=== PATIENT | male | born 1985 ===

== ENCOUNTER 2017-07-11 10:05 | Emergency (ER) | payer SELFPAY ==
[~2017-07-11] VITALS: Wt 118.2 kg
[2017-07-11] MEDS ORDERED: FLUORESCEIN STRIP RIGHT EYE ONE (11:00)
[2017-07-11] MEDS ORDERED: OPHTHALMIC IRRIG SOLUTION 120 ML RIGHT EYE ONE (11:00)
[2017-07-11] MEDS ORDERED: TETRACAINE 0.5% 4 ML OPH BOTH EYES ONE (11:00)
[2017-07-11] MEDS ORDERED: POLY10DR19 RIGHT EYE (11:51)
[2017-07-11] MEDS ORDERED: IBUP-1542 PO (11:52)
--- NOTE | 2017-07-11 12:42 | ERD ---
ER Documentation Chief Complaint Chief Complaint fb to r. eye while gardening SARMAD This is a 32-year-old male who presents to the ED for concerns of foreign body sensation to his right eye which started earlier today 8:30am. Patient states he is unsure if he got sap into his right eye while he was regarding needing earlier today. Patient reports intermittent clear tearing from his right eye. Patient also reports increased nasal rhinorrhea. Patient denies any visual changes. Patient denies any contact lens use. Patient does report rinsing his eye out for approximately 5 minutes of water after the incident. Patient denies any headache, fever, chills, neck pain or loss of consciousness. ROS All systems reviewed and are negative except as per history of present illness. Medications Home Meds Active Scripts Ibuprofen* (Motrin*) 600 Mg Tab, 600 MG PO Q6, #20 TAB Prov:ANDRE JAQUEZ PA-C 07/11/17 Polymyxin B Sulfate-TMP* (Polymyxin B-TMP Eye Drops*) 10 Ml Drops, 1 DROP RIGHT EYE QID for 7 Days, EA Prov:ANDRE JAQUEZ PA-C 07/11/17 PMhx/Soc Medical and Surgical Hx: pt denies Medical Hx, pt denies Surgical Hx Hx Alcohol Use: No Hx Substance Use: No Hx Tobacco Use: No Smoking Status: Never smoker Physical Exam Vitals Vital Signs Date Time Temp Pulse Resp B/P Pulse Ox O2 Delivery O2 Flow Rate FiO2 07/11/17 10:06 98.0 80 20 136/84 100 Physical Exam GENERAL: Well-developed, well-nourished male. Appears in no acute distress. HEAD: Normocephalic, atraumatic. EYE: Visual acuity w/ Snellen eye chart: see interventions, Normal eye alignment. No orbital swelling or erythema. No proptosis. Pupils equal, round, and reactive to light. EOMs intact. Right conjunctiva minimally erythematous. No scleral icterus. +R eye clear tearing. Anterior chamber clear. No hyphema or hypopion. Wood's lamp exam: No foreign bodies, corneal abrasions or ulcerations visualized with fluorescein dye. Negative Bre sign. NECK: Supple. No meningismus. Normal range of motion of the neck. LUNG: Clear to auscultation bilaterally. No rhonchi, wheezing, rales or coarse breath sounds. HEART: Regular rate and rhythm. No murmurs, rubs or gallops. EXTREMITIES: Equal pulses bilaterally. No peripheral clubbing, cyanosis or edema. No unilateral leg swelling. NEUROLOGIC: Alert and oriented. Moving all four extremities without any difficulty. Normal speech. Steady gait. SKIN: Normal color. Warm and dry. No rashes or lesions. Results 24 hrs Current Medications Medications (Trade) Dose Ordered Sig/Alexis Route PRN Reason Start Time Stop Time Status Last Admin Dose Admin Tetracaine HCl (Tetracaine 0.5% Steri-Unit Claudia) 1 drop ONCE ONCE BOTH EYES 07/11/17 11:00 07/11/17 11:01 DC 07/11/17 11:05 Irrigating Solution (Eye Wash) 1 applic ONCE ONCE RIGHT EYE 07/11/17 11:00 07/11/17 11:01 DC 07/11/17 11:05 Fluorescein Sodium (Brzsi-M-Flquf) 1 strip ONCE ONCE RIGHT EYE 07/11/17 11:00 07/11/17 11:01 DC 07/11/17 11:05 Procedures/MDM MEDICAL DECISION MAKING: This is a 32-year-old male who presents with right eye foreign body sensation after getting sap into his right eye while gardening earlier this morning. Patient does report rinsing his eye out prior to arrival. Patient denies any contact lens use. Vital signs were reviewed. Patient was afebrile. Patient's vision was grossly intact. See visual acuity findings in interventions. Hernandez lamp exam revealed no findings of ulceration or retained foreign body. Negative Bre sign. Patient's eye was rinsed out. Given these findings, the patient' s presentation is most consistent with R eye corneal irritation. I have a much lower clinical concern for orbital fracture, globe rupture, bacterial conjunctivitis, viral conjunctivitis, allergic conjunctivitis, corneal ulcer, retained eye foreign body, glaucoma, periorbital cellulitis, orbital cellulitis , hordeolum, dacrocystitis. I will empirically treat the patient with a course of antibiotic eyedrops. Patient was advised to follow-up with the agriculture specialist the next 1 to 2 days for further management of his symptoms. PRESCRIPTIONS: Ibuprofen, Polytrim eye drops DISCHARGE: At this time, patient is stable for discharge and outpatient management. Supportive measures were discussed with patient including warm/cool compresses. Patient advised not to wear contact lenses or eye makeup. I have instructed the patient to follow-up with his/her primary care physician in 1-2 days. I have discussed with the patient the possibility of needing to see an agriculture specialist for further workup if symptoms persist. I have instructed the patient to promptly return to the ER for any new or worsening symptoms including increased pain, fever, swelling, redness, warmth, nausea, vomiting, . The patient and/or family expressed understanding of and agreement with this plan. All questions were answered. Home care instructions were provided. Disclaimer: Inadvertent spelling and grammatical errors are likely due to EHR/ dictation software use and do not reflect on the overall quality of patient care. Also, please note that the electronic time recorded on this note does not necessarily reflect the actual time of the patient encounter. Departure Diagnosis: Primary Impression: Corneal irritation of right eye Condition: Stable Patient Instructions: Corneal Abrasion Referrals: [facility] Hours: Mon - Fri 9:00 AM - 5:00 PM [facility] YOU HAVE RECEIVED A MEDICAL SCREENING EXAM AND THE RESULTS INDICATE THAT YOU DO NOT HAVE A CONDITION THAT REQUIRES URGENT TREATMENT IN THE EMERGENCY DEPARTMENT. FURTHER EVALUATION AND TREATMENT OF YOUR CONDITION CAN WAIT UNTIL YOU ARE SEEN IN YOUR DOCTORS OFFICE WITHIN THE NEXT 1-2 DAYS. IT IS YOUR RESPONSIBILITY TO MAKE AN APPOINTMENT FOR FOLOW-UP CARE. IF YOU HAVE A PRIMARY DOCTOR --you should call your primary doctor and schedule an appointment IF YOU DO NOT HAVE A PRIMARY DOCTOR YOU CAN CALL OUR PHYSICIAN REFERRAL HOTLINE AT IF YOU CAN NOT AFFORD TO SEE A PHYSICIAN YOU CAN CHOSE FROM THE FOLLOWING [facility] CLINICS [facility] [address] [facility]. [facility] [address] [facility] [address] [facility] [address] [facility] [address] [facility]. [facility]. [address] [facility] YOU HAVE RECEIVED A MEDICAL SCREENING EXAM AND THE RESULTS INDICATE THAT YOU DO NOT HAVE A CONDITION THAT REQUIRES URGENT TREATMENT IN THE EMERGENCY DEPARTMENT. FURTHER EVALUATION AND TREATMENT OF YOUR CONDITION CAN WAIT UNTIL YOU ARE SEEN IN YOUR DOCTORS OFFICE WITHIN THE NEXT 1-2 DAYS. IT IS YOUR RESPONSIBILITY TO MAKE AN APPOINTMENT FOR FOLOW-UP CARE. IF YOU HAVE A PRIMARY DOCTOR --you should call your primary doctor and schedule and appointment IF YOU DO NOT HAVE A PRIMARY DOCTOR YOU CAN CALL OUR PHYSICIAN REFERRAL HOTLINE AT . IF YOU CAN NOT AFFORD TO SEE A PHYSICIAN YOU CAN CHOSE FROM THE FOLLOWING [facility] INSTITUTIONS: [facility] [id number] [place] [address] [facility] [address] [place] [address] [facility] [address] [place] [address] Additional Instructions: Call your primary care doctor/EYE DOCTOR TOMORROW for an appointment during the next 1-2 days.See the doctor sooner or return here if your condition worsens before your appointment time. ANDRE JAQUEZ PA-C Jul 11, 2017 12:42
== END 2017-07-11 13:22 | disposition home or self-care (01) ==
LOC: FTE 10:05
DX: S05.01XA Injury of conjunctiva and corneal abrasion without foreign body, right eye, initial encounter (principal); X58.XXXA Exposure to other specified factors, initial encounter; Y92.9 Unspecified place or not applicable
CPT/HCPCS: 99283